=== PATIENT | male | born 1960 | race Caucasian/White ===

== ENCOUNTER 2017-09-15 11:08 | Outpatient (CLI) | payer MEDICARE ==
[~2017-09-15] VITALS: Ht 172.7 cm; Wt 78.2 kg
--- NOTE | ~2017-09-15 | HEMODYNAMI ---
PATIENT:LAILA DIA MEDICAL RECORD: [id number] : 56 LOCATION:[facility] ADMISSION DATE: 09/15/17 Generatedon:09/15/201714:58 Patient name: LAILA DIA Patient #: [id number] SSN: : Date of study: 09/15/2017 Page: Of Hemodynamic Procedure Report Patient Data Patient Demographics Procedure consent was obtained First Name: LAILA Gender: Male Last Name: IFEOMA : 1960 [facility] Initial: JAMISON Age: 57 year(s) Patient #: [id number] Race: Unknown Additional ID: [id number] Contact details Address: [address] [place] [address] State: [place] City: [place] Zip code: [address] Past Medical History Allergies: No known allergies Admission Admission Data Admission Date: 09/15/2017 Admission Time: 11:08 Procedure Procedure Types Cath Procedure Diagnostic Procedure LHC LHC w/Coronaries FFR/IVUS Intra-Coronary IVUS Initial Miscellaneous Procedures Moderate Sedation up to 45 minutes Procedure Description Procedure Date Procedure Date: 09/15/2017 Procedure Start Time: 14:20 Procedure End Time: 14:55 Procedure Staff Name Function Jose Rees RT Scrub Eloisa Hernandes RN Nurse Huseyin Cummings MD Performing Physician So Ibarra RN Nurse Jorge Alberto Galloway RT Monitor Procedure Data Cath Procedure Fluoroscopy Diagnostic fluoroscopy Total fluoroscopy Time: 7 time: 7 min min Diagnostic fluoroscopy Total fluoroscopy dose: 729 dose: 729 mGy mGy Contrast Material Contrast Material Type Amount (ml) Isovue 300 102 Entry Location Entry Primary Successful Side Size Upsize Upsize Entry Closure Mendoza ccessful Closure Location (Fr) 1 (Fr) 2 (Fr) Remarks Device Remarks Radial Right 6 Fr Mechanical artery Short Compression Estimated blood loss: 5 ml Diagnostic catheters Device Type Used For End Catheter Placement Terumo 5Fr Sam 110cm Procedure catheter Procedure Complications No complications Procedure Medications Medication Administration Route Dosage 0.9% NaCl I.V. 100 ml/hr Oxygen NC 2 l/min Lidocaine 2% added to field 20 Heparin Flush Bag added to field 2 bags (1000units/500ml NS) Benadryl I.V. 50 mg Radial Cocktail added to field 1 syringe (Verapomil 2mg/Nitro 400mcg/Heparin 1500units) Fentanyl I.V. 100 mcg Versed I.V. 2 mg Versed I.V. 2 mg Fentanyl I.V. 100 mcg Heparin Bolus I.V. 6000 units Versed I.V. 1 mg Fentanyl I.V. 50 mcg Fentanyl I.V. 50 mcg Versed I.V. 1 mg Hemodynamics Rest Heart Rate: 56 (bpm) Pressure Samples Time Site Value (mmHg) Purpose Heart Use Rate(bpm) 14:25 LV 122/4,15 Snapshot 63 14:25 LV 134/4,13 Pullback 66 14:25 AO 124/69(92) Pullback 66 Gradients Valve Time Site 1 Site 2 Mean SEP/DFP Peak To Heart Use (mmHg) (sec/min) Peak Rate (mmHg) (bpm) Aortic 14:25 LV AO 8 20 10 66 134/4,13 124/69(92) Calculations Valve P-P Mean Valve Index Valve Source Name Gradient Area Flow (cm2) Aortic 10 8 10 8 Snapshots Pre Cath Intra NCS Post Cath Vital Signs Time Heart Resp SPO2 etCO2 NIBP (mmHg) Rhythm Pain Sedation Rate (ipm) (%) (mmHg) Status Level (bpm) 14:03:44 52 15 98 0 147/82(113) NSR 0 (11) 10(A) , No pain 14:08:29 48 17 100 12 148/79(107) NSR 0 (11) 10(A) , No pain 14:13:14 52 17 99 12 146/76(123) NSR 0 (11) 10(A) , No pain 14:17:59 59 18 98 18 141/75(113) NSR 0 (11) 10(A) , No pain 14:22:41 69 17 96 0 111/71(87) NSR 0 (11) 9(A) , No pain 14:27:18 63 16 98 9.7 125/74(102) NSR 0 (11) 9(A) , No pain 14:31:58 62 16 97 0 128/72(96) NSR 0 (11) 9(A) , No pain 14:36:39 61 14 96 0 117/69(92) NSR 0 (11) 9(A) , No pain 14:41:18 62 14 97 6 124/69(87) NSR 0 (11) 9(A) , No pain 14:45:58 62 14 97 6 112/70(96) NSR 0 (11) 9(A) , No pain 14:50:37 61 16 98 6.7 109/62(80) NSR 0 (11) 10(A) , No pain 14:55:48 59 7 98 6 125/72(92) NSR 0 (11) 10(A) , No pain Medications Time Medication Route Dose Verified Delivered Reason Note s Effectiveness by by 13:55:03 0.9% NaCl I.V. 100 Huseyin So used for ml/hr Emiliano Ibarra RN procedure 13:55:15 Oxygen NC 2 l/min Huseyin So Per physician Emiliano Ibarra RN 13:55:30 Lidocaine 2% added 20ml Huseyin Huseyin for local to vial Emiliano Cummings MD anesthetic field 13:55:48 Heparin Flush added 2 bags Huseyin Huseyin used for Bag to Emiliano Cummings MD procedure (1000units/500ml field NS) 14:06:57 Benadryl I.V. 50 mg Huseyin Huseyin used for Emiliano Cummings MD procedure 14:12:25 Radial Cocktail added 1 Huseyin Huseyin for (Verapomil to syringe Emiliano Cummings MD vasodilation 2mg/Nitro field 400mcg/Hepari 14:19:18 Fentanyl I.V. 100 mcg Huseyin So for sedation Emiliano Ibarra RN 14:19:29 Versed I.V. 2 mg Huseyin So for sedation Emiliano Ibarra RN 14:25:04 Fentanyl I.V. 100 mcg Huseyin So for sedation Emiliano Ibarra RN 14:25:23 Versed I.V. 2 mg Huseyin So for sedation Emiliano Ibarra RN 14:37:26 Heparin Bolus I.V. 6000 Huseyin So for units Emiliano Ibarra RN anticoagulation 14:37:38 Versed I.V. 1 mg Huseyin So for sedation Emiliano Ibarra RN 14:37:49 Fentanyl I.V. 50 mcg Huseyin So for sedation Emiliano Ibarra RN 14:44:43 Fentanyl I.V. 50 mcg Huseyin Rizzo for sedation Emiliano Ibarra RN 14:44:53 Versed I.V. 1 mg Huseyin Rizzo for sedation Emiliano Ibarra RN Procedure Log Time Note 13:40:11 Eloisa Hernandes RN sent for patient. Start room use. 13:52:12 Time tracking: Regular hours 13:52:16 Plan of Care:Hemodynamics will remain stable., Cardiac rhythm will remain stable., Comfort level will be maintained., Respiratory function will remain adequate., Patient/ family verbilizes understanding of procedure., Procedure tolerated without complication., Recovers from procedure without complications.. 13:55:03 0.9% NaCl 100 ml/hr I.V. was administered by So Ibarra RN; used for procedure; 13:55:15 Oxygen 2 l/min NC was administered by So Ibarra RN; Per physician; 13:55:30 Lidocaine 2% 20ml vial added to field was administered by Huseyin Cummings MD; for local anesthetic; 13:55:47 Patient received from Pre/Post Procedure Room to [facility] 1 Alert and oriented. Tansferred to table in Supine position. 13:55:48 Warm blankets applied, and kevon hugger turned on for patient comfort. 13:55:48 Heparin Flush Bag (1000units/500ml NS) 2 bags added to field was administered by Huseyin Cummings MD; used for procedure; 13:55:50 Correct patient and procedure confirmed by team. 13:55:52 ECG and BP/O2 sat monitors applied to patient. 13:55:52 Signed procedure consent form obtained from patient. 14:02:51 Vital chart was started 14:06:57 Benadryl 50 mg I.V. was administered by Huseyin Cummings MD; used for procedure; 14:12:25 Radial Cocktail (Verapomil 2mg/Nitro 400mcg/Heparin 1500units) 1 syringe added to field was administered by Huseyin Cummings MD; for vasodilation; 14:14:21 Baseline sample Acquired. 14:14:27 Rhythm: sinus rhythm 14:14:28 Full Disclosure recording started 14:14:38 H&P Date Dictated: 08/03/2017 Within 30 days and on chart., H&P Addendum completed by physician on day of procedure. (MUST COMPLETE FOR ALL OUTPATIENTS). 14:14:42 Pre-procedure instructions explained to patient. 14:14:43 Pre-op teaching completed and patient verbalized understanding. 14:14:45 Family in waiting room. 14:14:47 Patient NPO since Midnight. 14:14:52 Patient allergic to No known allergies 14:14:54 Is the patient allergic to Iodine/contrast media? No. 14:14:55 Is patient on blood thinner?No 14:14:57 Patient diabetic? No. 14:14:59 Previous problem with sedation/anesthesia? No ? 14:15:20 Snore? Yes 14:15:22 Sleep apnea? No 14:15:23 Opens mouth fully? Yes 14:15:23 Deviated septum? No 14:15:24 Sticks out tongue? Yes 14:15:26 Airway obstruction? No ? 14:15:28 Dentures? No ? 14:16:11 Modified Abraham's test Ulnar < 7 seconds 14:16:19 Patient pain scale 0/10 ?. 14:16:24 IV patent on arrival in left forearm with 0.9% NaCl at [facility]. 14:17:15 Lab results completed and on chart. 14:17:21 Right Radial & Left Groin area was prepped with chlora-prep and draped in sterile fashion 14:17:22 Alarms reviewed by R. N. 14:17:23 Sharps counted by scrub and verified by R.N. 14:17:25 Use device set Radial Dx 14:17:26 MBrace Wrist Support (140-0250-00) opened to sterile field. 14:17:27 ACIST: Hand Control (59492) opened to sterile field. 14:17:28 St Chandler 260cm J .035 wire opened to sterile field. 14:17:29 Medline Cath Pack ([id number]) opened to sterile field. 14:17:29 ACIST: Syringe (27673) opened to sterile field. 14:17:30 Bag Decanter () opened to sterile field. 14:17:31 Terumo 6Fr Slender Glidesheath opened to sterile field. 14:17:32 Tegaderm 4 x 4 (1626W) opened to sterile field. 14:17:37 --------ALL STOP TIME OUT------ 14:17:37 Physician arrived 14:17:38 Final Timeout: patient, procedure, and site verified with staff and physician. All members of the team are in agreement. 14:17:40 Right Radial & Left Groin site verified by team. 14:17:43 Physical assessment completed. ASA score P 2 - A patient with mild systemic disease as per Huseyin Cummings MD. 14:17:45 Sedation plan: IV Moderate Sedation Medication:Versed, Fentanyl 14:19:18 Fentanyl 100 mcg I.V. was administered by So Ibarra RN; for sedation; 14:19:29 Versed 2 mg I.V. was administered by So Ibarra RN; for sedation; 14::37 Procedure started. 14::43 Local anesthetic to right radial artery with Lidocaine 2% by Huseyin Cummings MD.INITIAL ACCESS ONLY 14:21:35 A 6 Fr Short sheath was inserted into the Right Radial artery 14:23:02 A SR Labs 5Fr Sam 110cm catheter was advanced over the wire and used for Procedure. 14:23:11 Zero performed for pressure channel P1 14:23:14 Zero performed for pressure channel P1 14:25:04 Fentanyl 100 mcg I.V. was administered by So Ibarra RN; for sedation; 14:25:11 LV gram done using CLARKE 14:25:15 Injector settings: Ml/sec: 5, Volume: 15, 14:25:23 Versed 2 mg I.V. was administered by So Ibarra RN; for sedation; 14:25:33 EF : 55 % 14:25:34 LV hemodynamics recorded. 14:26:12 LCA angiography performed. 14:27:54 RCA angiography performed. 14:33:14 TUBING: High Pressure Extension Tubing (Emiliano) (LU1055I) opened to sterile field. 14:33:14 Cordis 6FR XBLAD 3.5 guide catheter opened to sterile field. 14:33:16 INFLATOR: IQ LogicixCompak Inflation Kit (PP7887) opened to sterile field. 14:33:[address] [place] IVUS Catheter opened to sterile field. 14:35:36 Aiken BMW [place] 2 J-tip 300cm 0.014 guide wir opened to sterile field. 14:35:42 Catheter removed. 14:35:48 6 Fr xblad 3.5 guide catheter was inserted over the wire 14:35:52 BMW wire advanced. 14:37:26 Heparin Bolus 6000 units I.V. was administered by So Ibarra RN; for anticoagulation; 14:37:38 Versed 1 mg I.V. was administered by So Ibarra RN; for sedation; 14:37:49 Fentanyl 50 mcg I.V. was administered by So Ibarra RN; for sedation; 14:38:12 Wire advanced across lesion. 14:38:51 IVUS catheter advanced over wire. 14:42:03 IVUS pass to LAD lesion performed. 14:42:05 IVUS catheter removed over wire. 14:42:10 Wire redirected to cx. 14:43:22 Wire advanced across lesion. 14:43:39 IVUS catheter advanced over wire. 14:44:43 Fentanyl 50 mcg I.V. was administered by So Ibarra RN; for sedation; 14:44:53 Versed 1 mg I.V. was administered by So Ibarra RN; for sedation; 14:47:56 IVUS pass to Circ lesion performed. 14:47:57 IVUS catheter removed over wire. 14:50:03 Wire removed. 14:50:05 Guide catheter removed. 14:50:12 Terumo TR Band Standard opened to sterile field. 14:50:20 Sheath removed intact; hemostasis achieved with Mechanical Compression to the Right Radial artery. 14:50:21 Procedure ended.(Physican Out) 14:51:34 Fluoroscopy time 07.00 minutes. 14:51:38 Fluoroscopy dose: 729 mGy 14:51:38 Flurop Dose total: 729 14:51:42 Contrast amount:Isovue 300 102ml. 14:51:45 Sharps counted by scrub and verified by R.N. 14:51:48 TR band inflated with 12cc of air. 14:51:49 Insertion/operative site no bleeding no hematoma. 14:51:54 Post Procedure Pulses reassessed and unchanged 14:51:57 Post-procedure physical assessment completed. ASA score P 2 - A patient with mild systemic disease as per Huseyin Cummings MD. 14:52:00 Post procedure rhythm: unchanged. 14:52:02 Estimated blood loss: 5 ml 14:52:03 Post procedure instruction explained to patient.Patient verbalizes understanding. 14:52:05 Patient needs reinforcement of post procedure teaching. 14:53:21 Procedure type changed to Cath procedure, Diagnostic procedure, LHC, LHC w/Coronaries, FFR/IVUS, Intra-Coronary IVUS Initial, Miscellaneous Procedures, Moderate Sedation up to 45 minutes 14:54:34 NEEDLE: Cook 21G 4cm Radial ([id number]) opened to sterile field. 14:54:56 Procedure and supply charges have been captured, reviewed, submitted and are correct. 14:54:59 Procedure Complication : No complications 14:55:01 Vital chart was stopped 14:55:02 See physician's report for complete and final results. 14:55:04 Report given to Pre/Post Procedure Room. 14:55:06 Patient transfered to Pre/Post Procedure Room with Stretcher. 14:55:08 Full Disclosure recording stopped 14:55:08 Procedure ended. 14:55:26 End room use (Document Last) Device Usage Item Name Manufacture Quantity Catalog Hospital Part Current Minim al Lot# / Number Charge Number Stock Stock Serial# Code MBrace Wrist Advanced 1 140-0250-00 239279 43574 [id number] 5 Support Vascular (140-0250-00) Dynamics ACIST: Hand Acist 1 65323 992203 290607 677378 5 Control Medical (34278) Systems Inc [facility] Chandler 260[address] [place] 1 546091 676975 492900 995682 30 J .035 wire ACIST: Acist 1 52270 522221 184386 582723 20 Syringe Medical (45787) Systems Inc Medline Cath Cardinal 1 [id number] 526884 31015 559065 5 Pack Health (PYFB25168) Bag Decanter Microtek 1 2001S 544317 81657 968093 5 (2001S) Medical Inc. Terumo 6Fr Terumo 1 [id number] 237426 919230 013813 40 Slender Glidesheath Tegaderm 4 x 3M 1 1626W 181958 536442 098547 5 4 (1626W) Terumo 5Fr Terumo 1 40-7018 185985 478916 145978 5 Sam 110cm catheter Cordis 6FR Cardinal 1 [id number] 322938 996497 593030 10 XBLAD 3.5 Health guide catheter TUBING: High Merit 1 [id number] 683805 05584 204486 10 Pressure Medical Extension Tubing (Cummings) (KM6986Y) INFLATOR: [facility] 1 GO3681 216215 841993 740461 15 [facility] BasixCompak Inflation Kit (MH9982) [facility] 1 44780Y 017578 033282 [address] [place] IVUS Catheter Aiken BMW Aiken 1 [id number] 202171 486462 602030 5 [place] 2 Vascular J-tip 300cm 0.014 guide wir Terumo TR Terumo 1 [id number] 655698 801039 792941 40 Band Standard NEEDLE: SocialFlow 1 W10375 550987 631037 778828 5 21G 4cm Radial (G93206) Signature Audit [place] Stage Time Signature Unsigned Intra-Procedure 09/15/2017 Jorge Alberto Galloway 2:58:42 PM RT(R) Signatures Monitor : Jorge Alberto Galloway RT Signature : Date : Time : [place] [id number] [place] [address]
[2017-09-15] MEDS ORDERED: BAYER CHEWABLE81 MG PO (11:32)
[2017-09-15] MEDS ORDERED: BETAPACE 80 MG80 MG PO (11:32)
[2017-09-15 11:42] VITALS: BP 119/83; Ht 172.7 cm; Wt 78.2 kg
[2017-09-15 11:48] LABS: BASOPHILS 0.5 % (0-2); EOSINOPHILS 4.1 % (0-7); HEMOGLOBIN 15.4 g/dL (13.5-17.5); IMMATURE GRANULOCYTES 0.3 % (0-5); LYMPHOCYTES 23.3 % (15-50); MCH 33.3 pg (26.0-34.0); MCHC 33.5 g/dL (31.0-37.0); MCV 99.4 fL (80.0-100.0); MEAN PLATELET VOLUME 9.5 fL (7.4-10.4); MONOCYTES 8.6 % (2-11); NEUTROPHILS 63.2 % (40-80); PLATELET COUNT 271 10x3/uL (130-400); RBC 4.63 10x6/uL (4.20-6.10); RDW 13.8 % (11.5-14.5); WBC 6.5 10x3/uL (4.8-10.8)
[2017-09-15 12:05] LABS: CALC OSMOLALITY 275 mosm/kg (275-300); CALCIUM 9.2 mg/dL (8.5-10.1); CARBON DIOXIDE 25.4 mmol/L (21.0-32.0); CHLORIDE - SERUM 105 mmol/L (98-107); CREATININE - SERUM 0.8 mg/dL (0.6-1.3); GLUCOSE 99 mg/dL (74-106); POTASSIUM - SERUM 4.1 mmol/L (3.5-5.1); SODIUM 139 mmol/L (136-145); UREA NITROGEN 8 mg/dL (7-18); eGFR NON AFRICAN AMERICAN > 90 mL/min (90-120)
== END 2017-09-15 17:55 | disposition home or self-care (01) ==
LOC: D.CATH 11:08
PROVIDERS: Internal Medicine Cardiovascular Disease
DX: I25.119 Atherosclerotic heart disease of native coronary artery with unspecified angina pectoris (principal); T82.855A Stenosis of coronary artery stent, initial encounter; R94.39 Abnormal result of other cardiovascular function study; Z01.812 Encounter for preprocedural laboratory examination

== ENCOUNTER → 2017-10-20 11:20 | Outpatient (CLI) | payer MEDICARE ==
[2017-09-15 11:42] VITALS: BMI 26.2
[~2017-10-20 11:20] MED LIST: BAYER CHEWABLE81 MG PO; BETAPACE 80 MG80 MG PO; HEMOCYTE PLUS C1 CAP PO; K-DUR20 MEQ PO; LASIX40 MG PO; PERCOCET 10/3251 TA1 PO; TUMERIC PO
[2017-10-21 12:15] LABS: HEPATITIS C ANTIBODY <0.1 (0.0-0.9)
== END | disposition home or self-care (01) ==
LOC: D.US 11:00
PROVIDERS: Internal Medicine Cardiovascular Disease
DX: Z01.812 Encounter for preprocedural laboratory examination (principal); I65.23 Occlusion and stenosis of bilateral carotid arteries; I48.91 Unspecified atrial fibrillation

== ENCOUNTER 2017-11-16 07:30 | Inpatient (IN) | payer MEDICARE ==
[~2017-11-16] VITALS: Ht 172.7 cm; Wt 83.2 kg
--- NOTE | ~2017-11-16 | OP ---
PATIENT NAME: LAILA DIA MEDICAL RECORD: [id number] :56 LOCATION:[facility] ADMISSION DATE:11/18/17 SURGEON: XANDER SWANSON MD DATE OF OPERATION: 11/18/2017 SURGEON: Xander Swanson MD ANESTHESIA: General endotracheal, Dr. Pelayo. OPERATION PERFORMED: Coronary artery bypass utilizing left internal thoracic, left anterior descending, reverse saphenous vein segment to the obtuse marginal 1 coronary artery and reverse saphenous vein graft to the posterior descending coronary artery. PREOPERATIVE DIAGNOSES: Atherosclerosis, coronary arteries with angina pectoris. POSTOPERATIVE DIAGNOSES: Atherosclerosis, coronary arteries with angina pectoris. INDICATION FOR OPERATION: Angina pectoris. FINDINGS AT OPERATION: The left anterior descending, obtuse marginal and posterior descending were good target vessels and 2.5 mm in diameter. The left internal thoracic and greater saphenous vein graft were of excellent quality. ESTIMATED BLOOD LOSS: Cell Saver was used. DESCRIPTION OF PROCEDURE: After informed consent and adequate preoperative medication and evaluation, the patient was brought to the operating room, placed on the table in the supine position. After induction of general anesthesia and application of appropriate monitoring devices, the chest, neck, abdomen, and both legs were prepped and draped in a sterile field, utilizing Betadine scrub, alcohol, and Betadine solution. A Betadine-impregnated drape was also used. Saphenous vein was harvested from right thigh and prepared for reverse saphenous vein graft. The leg was closed over drains utilizing 3-0 Vicryl and skin pankaj. A median sternotomy incision was used and dissection carried down the fascia. Hemostasis maintained with electrocautery. Sternum was divided and the innominate vein prepared for grafting. The patient was given a calculated dose of heparin, cannulated in the standard fashion utilizing 1 aortic, one two-stage cannula in the atrium and inferior vena cava. The patient was placed on cardiopulmonary bypass, cooled to 27 degrees centigrade. A cross clamp was placed just proximal to the aortic cannula and the patient was given cardioplegic solution through the aortic root. The patient was given a cold induction and cold maintenance. The patient was given cold intermittent cardioplegic solution throughout the procedure through the grafts, through the root or a combination of both. The first vessel to be grafted was the obtuse marginal. It was grafted end-to-side utilizing a running 7-0 Prolene suture. Grafts were measured back to the aorta and a proximal anastomosis fashioned utilizing running 6-0 Prolene suture. Next, the posterior descending was exposed and an end-to-side anastomosis fashioned to the vein graft utilizing a running 7-0 Prolene suture. The grafts were measured back to the aorta and a proximal anastomosis fashioned utilizing running 6-0 Prolene suture. Next, the left internal thoracic was brought through the hole in pericardium, sutured left anterior descending end-to-side utilizing a running 8-0 Prolene suture. Pedicle OPERATIVE REPORT [id number] IFEOMA,LAILA SWIFT was attached to epicardium with 6-0 Prolene suture. All maneuvers to remove trapped air were performed. The patient was given warm cardioplegic reperfusion and controlled reperfusion. The patient was rewarmed to 37 degrees centigrade. Two atrial and 2 ventricular pacing wires were placed in the heart brought out through the epigastric area. The patient was weaned cardiopulmonary bypass. After being stable off bypass, he was given calculated dose of protamine to reverse the heparin. Hemostasis was achieved. A #40 right angle and #36 chest tubes were brought in through the epigastric area and placed in mediastinum. A separate left pleural tube was connected to underwater seal and suction. Chest was again irrigated. Instrument count and sponge count were correct times 2. Chest was closed in layers utilizing #7 wire on the sternum, #2 Vicryl on the linea alba and pectoralis fascia. Subcutaneous tissue was approximated with 3-0 Vicryl and skin approximated with 3-0 subcuticular Vicryl. Sterile dressings were applied. The patient tolerated the procedure well and transferred to cardiovascular ICU in satisfactory condition. TRANSINT:[id number] Voice Confirmation ID: [id number] DOCUMENT ID: [id number] XANDER SWANSON MD at 1401 CC: [id number] DICTATION DATE: 11/18/17 1450 BANK GUARD: 11/18/17 1608 ADM IN [place] [id number] [place] [id number]
--- NOTE | ~2017-11-16 | TEE ---
PATIENT:LAILA DIA MEDICAL RECORD: [id number] LOCATION:[place] [address] AGE OF PATIENT: 57 ADMISSION DATE: 11/18/17 SEX: M REFERRING PHYSICIAN: INTERPRETING PHYSICIAN: WILLIE FORRESTER MD TRANSESOPHAGEAL ECHOCARDIOGRAM DANETTE CHARGE Y INDICATIONS: CABG PREMEDICATIONS: PATIENT'S RESPONSE PROCEDURE DOPPLER MEASUREMENTS: LVIT LA PA RA LVOT RVOT Asc. Ao AV Gradient Peak AV Mean AV Area MV Gradient Peak MV Mean MV Area INTERPRETATION: Doppler: 2-D: BRADYCARDIA, EF 50% COLOR FLOW DOPPLER TRACES OF MR, TR, AI NORMAL SALINE STUDY: MISCELLANOUS: DIAGNOSIS: PLAN: Project Eng:2 Dr. Cummings Dry Wall Applicator: Gab ROCHE COMMENTS: KIKI PATIENT DATE OF SERVICE: 11/18/2017 DATE OF SERVICE: 11/18/2017 Transesophageal echo evaluation of valvular structures during bypass surgery. FINDINGS: 1. Left ventricle chamber size is within normal limits. Left ventricular systolic function is normal. Overall ejection fraction estimated at 50%. TRANSESOPHAGEAL ECHOCARDIOGRAM REPORT [id number] LAILA DIA CHA 2. Left atrium, right atrium, and right ventricle chamber sizes are within normal limits. 3. Valvular structures have normal structure and motion. 4. Doppler interrogation only reveals trace mitral regurgitation, trace tricuspid regurgitation, trace aortic insufficiency. No other valvular insufficiency or stenosis. 5. No evidence of pericardial effusion or left ventricular thrombus. TRANSINT:[id number] Voice Confirmation ID: [id number] DOCUMENT ID: [id number] at 1800 CC: [id number] DICTATION DATE: 11/18/17 1213 LEAD ATG DEVELOPER: 11/18/17 1532 DIS IN 11/25/17 [place] [id number] [place] [id number]
--- NOTE | ~2017-11-16 | HP ---
PATIENT: LAILA DIA MEDICAL RECORD: [id number] ACCOUNT: [id number] LOCATION:[facility] : 56 ADMISSION DATE: 11/16/17 HISTORY AND PHYSICAL EXAMINATION LAILA Miles (57yo, M) ID# [id number]. Date/Time11/04/2017 09:06ERMJR01 [address] ClinicProviderPAULA SWANSON MDInsuranceMed Primary: [place] (MEDICARE) Insurance # : [id number] Employer Name : UNKNOWN Prescription: [employer] - This member could not be found in the payer's files. Please verify coverage and all member demographic information. Chief Complaint Followup: Coronary arteriosclerosis re-eval CABG, check if clear of flu symptoms Vitals BP:126/74 sitting L arm 11/04/2017 09:36 am 126/70 sitting R arm 11/04/2017 09:39 amBP Cuff Size:adult 11/04/2017 09:36 am adult 11/04/2017 09:38 amHR:52,reg 11/04/2017 09:39 amHt:5 ft 8 in 11/04/2017 09:34 amWt:173 lbs 11/04/2017 09:39 amNotes:feeling better. Occasionally has productive cough, couple times daily. Produces yellowish mucus, not in large amounts. decreasing. 11/04/2017 09:40 amBMI:26.3 11/04/2017 09:39 amAllergies Reviewed Allergies NKDAMedications Reviewed Medications Aspir-Esther 325 mg tablet,delayed release Take 1 tablet(s) every day by oral route.09/28/17 enteredKathy Wilsonsotalol 80 mg tablet Take 0.5 tablet(s) twice a day by oral route.09/28/17 enteredKathy WilsonProblems Reviewed Problems Coronary arteriosclerosis - Onset: 09/28/2017 Family History Reviewed Family History Mother- Heart diseaseSocial History Reviewed Social History Cardiology Family history of heart disease?: Y Smoking Status: Current every day smoker Smoker (1/2 PPD) High Cholesterol: N High blood pressure: N Overweight: Y Obese: N Diabetes: N Surgical History Reviewed Surgical History Angioplasty Appendectomy Tonsillectomy Past Medical History Reviewed Past Medical History Angioplasty (balloon): Y HISTORY AND PHYSICAL [id number] IFEOMALAILA Arrhythmia: Y Atrial fibrillation: Y Coronary Artery Disease: Y Heart stents: Y Documents for Discussion N/A Screening None recorded. HPI Coronary Artery Disease F/U Reported by patient. Severity: symptoms are improving; no chest discomfort with daily activities; has not needed to use Nitroglycerin Context: non-smoker Associated Symptoms: no chest pain; no neck pain; no left arm pain; no dyspnea with exertion; no sweating; no nausea; no stress coronary artery disease ROS Patient reports no fever, no night sweats, no significant weight gain, no significant weight loss, and no exercise intolerance; recent bout with the flu. He reports palpitations but reports no chest pain, no arm pain on exertion, no shortness of breath when walking, no shortness of breath when lying down, and no known heart murmur. He reports frequent diarrhea but reports no abdominal pain, no vomiting, normal appetite, not vomiting blood, no nausea, and no constipation. He reports no d ry eyes, no irritation, and no vision change. He reports no difficulty hearing and no ear pain. He reports no frequent nosebleeds and no nose/sinus problems. He reports no sore throat, no bleeding gums, no snoring, no dry mouth, no mouth ulcers, no oral a b normalities, and no teeth problems. He reports no jugular vein distension and no swollen glands. He reports no cough, no wheezing, no shortness of breath, and no coughing up blood. He reports no incontinence, no difficulty urinating, no hematuria, and no i ncreased frequency. He reports no muscle aches, no muscle weakness, no arthralgias/joint pain, no back pain, and no swelling in the extremities. He reports no abnormal mole, no jaundice, and no rashes. He reports no loss of consciousness, no weakness, no n umbness, no seizures, no dizziness, and no headaches. He reports no depression, no sleep disturbances, feeling safe in relationship, and no alcohol abuse. He reports no fatigue. He reports no swollen glands and no bruising. He reports no runny nose, no si nus pressure, no itching, no hives, and no frequent sneezing. ROS as noted in the HPI Physical Exam Patient is a 57-year-old male. Constitutional: General Appearance well nourished and developed and healthy-appearing. Level of Distress NAD. Ambulation ambulating normally. Cardiovascular: Apical Impulse not displaced or no thrill. Heart Auscultation normal s1 and s2; no murmurs, rubs, or gallops; and irregularly irregular. Arterial Pulses no abdominal aorta bruits, femoral bruits, or popliteal bruits and 2 + bilateral, carotid 2+ bilateral, femoral 2+ bilateral, popliteal 2+ bilateral, and dorsalis pedis 2+ bilateral. Edema no edema or varicosities. Lungs: Repiratory Effort no dyspnea. Percussion no hyperresonance or dullness or flatness. Auscultation no wh eezing, rhonchi, or rales / crackles and breathing sounds normal, good air movement, and CTA except as noted. HISTORY AND PHYSICAL [id number] LAILA DIA Abdomen: Bowl Sounds normal. Inspection and Palpation no tenderness, guarding, masses, or rebound tenderness and soft and non-distended. Liver non-tender and no hepatomegaly. Spleen non-tender and no splenomegaly. Hernia none palpable. Musculoskeletal System: Gait And Stance normal gait and stance. Digits and Nails normal nails and no cyanosis. Neurologic: Cranial Nerves grossly intact. Reflexes DTRs 2+ bilaterally throughout. Sensation grossly intact. Lymph Nodes: Lymph Nodes no cervical LAD, supraclavicular LAD, axillary LAD, or inguinal LAD. Eyes: Lids and Conjunctivae no discharge or pallor and non-injected. Pupils PERRLA. Cornea grossly intact. EOM EOMI. Lens clear. Sclerae non-icteric. Neck: Neck no masses, enlarged lymph nodes, or carotid bruits and supple and trachea midline. Thyroid no enlargement or nodules and non-tender. Skin: Inspection and Palpation no rash, lesions, ulcers, jaundice, or abnormal nevi. Assessment / Plan coronary artery disease 1. Coronary arteriosclerosis I25.10: Atherosclerotic heart disease of [place] coronary artery without angina pectoris Discussion Notes the patient has recovered from f luid and is ready to proceed with coronary bypass. I have discussed his disease process with him in detail as well as the alternative methods of treatment we discussed coronary artery bypass and the expected benefits and risks which include bleeding, infe ction, stroke, , M.D. imponderables. He understands all of the above and wishes to proceed with planned surgery AZALIA SWANSON MD at 1117 CC: [id number] DICTATION DATE: 11/04/1730 [employer]: SAUL 11/05/17 [id number] [place] [address]
[~2017-11-16 07:30] MED LIST changes: -HEMOCYTE PLUS C1 CAP PO; -K-DUR20 MEQ PO; -LASIX40 MG PO; -PERCOCET 10/3251 TA1 PO; -TUMERIC PO
[2017-11-17] MEDS ORDERED: TUMERIC PO (11:38)
[2017-11-17 13:26] LABS: APPEARANCE CLEAR (CLEAR); COLOR YELLOW (YELLOW)
[2017-11-17 13:27] LABS: BACTERIA FEW /hpf (NONE SEEN); BILIRUBIN NEGATIVE (NEGATIVE); EPITHELIAL CELLS 0-5 /hpf (0-5); GLUCOSE NEGATIVE (NEGATIVE); GRANULAR CAST RARE /lpf (NONE SEEN); HYALINE CAST 0-5 /lpf (NONE SEEN); KETONE NEGATIVE (NEGATIVE); NITRITE NEGATIVE (NEGATIVE); PROTEIN NEGATIVE (NEGATIVE); UROBILINOGEN NORMAL (NORMAL); WHITE CELLS - URINE OCC /hpf (0-5)
[2017-11-17 13:28] LABS: MUCUS <1+ /lpf (NONE SEEN)
[2017-11-17 13:50] LABS: BASOPHILS 0.3 % (0-2); EOSINOPHILS 4.7 % (0-7); HEMATOCRIT 47.1 % (42.0-54.0); HEMOGLOBIN 16.3 g/dL (13.5-17.5); IMMATURE GRANULOCYTES 0.5 % (0-5); LYMPHOCYTES 31.1 % (15-50); MCH 33.7 pg (26.0-34.0); MCHC 34.6 g/dL (31.0-37.0); MCV 97.5 fL (80.0-100.0); MEAN PLATELET VOLUME 9.3 fL (7.4-10.4); MONOCYTES 11.6 % (2-11); NEUTROPHILS 51.8 % (40-80); PLATELET COUNT 245 10x3/uL (130-400); RBC 4.83 10x6/uL (4.20-6.10); RDW 15.2 % (11.5-14.5); WBC 6.6 10x3/uL (4.8-10.8)
[2017-11-17 13:53] LABS: INR 1.08 (0.85-1.17); PROTIME 13.6 SECONDS (11.6-15.0)
[2017-11-17 14:29] LABS: ALBUMIN 4.2 g/dL (3.4-5.0); ALKALINE PHOSPHATASE 111 U/L (46-116); ALT (SGPT) 29 U/L (10-68); BILIRUBIN - TOTAL 0.43 mg/dL (0.2-1.3); CALC OSMOLALITY 278 mosm/kg (275-300); CALCIUM 9.3 mg/dL (8.5-10.1); CARBON DIOXIDE 20.8 mmol/L (21.0-32.0); CHLORIDE - SERUM 105 mmol/L (98-107); CHOLESTEROL, TOTAL 246 mg/dL (0-200); CREATININE - SERUM 0.9 mg/dL (0.6-1.3); GLUCOSE 101 mg/dL (74-106); PHOSPHOROUS 3.6 mg/dL (2.5-4.9); POTASSIUM - SERUM 4.3 mmol/L (3.5-5.1); PROTEIN - SERUM 7.5 g/dL (6.4-8.2); SODIUM 139 mmol/L (136-145); T4 THYROXIN - FREE 0.96 ng/dL (0.76-1.46); THYROID STIMULATING HORMONE 1.25 uIU/mL (0.36-3.74); UREA NITROGEN 14 mg/dL (7-18); URIC ACID 9.1 mg/dL (2.6-7.2); eGFR NON AFRICAN AMERICAN > 90 mL/min (90-120)
[2017-11-17 14:37] LABS: COLD SCREEN @ 4 DEGREES 2+ (NEGATIVE); COLD SCREEN ROOM TEMP NEGATIVE (NEGATIVE)
[2017-11-17 14:44] LABS: HEMOGLOBIN A1C 5.1 % (4.8-6.0)
[2017-11-18] VITALS (35 sets, daily range): BP systolic 102–142; BP diastolic 47–76; BMI 24.9; BMI 26.7
[2017-11-18 07:53] LABS: PLT FUNCT.(P2Y12) PLAVIX 198 PRU (194-418)
[2017-11-18 14:06] LABS: MCH 33.1 pg (26.0-34.0); MCHC 34.1 g/dL (31.0-37.0); MEAN PLATELET VOLUME 9.2 fL (7.4-10.4); RDW 14.9 % (11.5-14.5)
[2017-11-18 14:08] LABS: HEMATOCRIT 35.5 % (42.0-54.0); HEMOGLOBIN 12.1 g/dL (13.5-17.5); RBC 3.66 10x6/uL (4.20-6.10); WBC 12.4 10x3/uL (4.8-10.8)
[2017-11-18 14:19] LABS: APTT 35.4 SECONDS (22.8-39.4); CALC OSMOLALITY 297 mosm/kg (275-300); CALCIUM 7.1 mg/dL (8.5-10.1); CARBON DIOXIDE 23.9 mmol/L (21.0-32.0); CHLORIDE - SERUM 111 mmol/L (98-107); CREATININE - SERUM 0.8 mg/dL (0.6-1.3); INR 1.62 (0.85-1.17); POTASSIUM - SERUM 4.5 mmol/L (3.5-5.1); PROTIME 18.7 SECONDS (11.6-15.0); SODIUM 147 mmol/L (136-145); UREA NITROGEN 14 mg/dL (7-18); eGFR NON AFRICAN AMERICAN > 90 mL/min (90-120)
[2017-11-18 14:20] LABS: GLUCOSE 182 mg/dL (74-106)
[2017-11-18 17:12] LABS: APPEARANCE HAZY (CLEAR); BILIRUBIN NEGATIVE (NEGATIVE); COLOR YELLOW (YELLOW); GLUCOSE NEGATIVE (NEGATIVE); KETONE NEGATIVE (NEGATIVE); NITRITE NEGATIVE (NEGATIVE); PROTEIN TRACE mg/dL (NEGATIVE); UROBILINOGEN NORMAL (NORMAL)
[2017-11-18 17:13] LABS: BACTERIA FEW /hpf (NONE SEEN); EPITHELIAL CELLS 0-5 /hpf (0-5); WHITE CELLS - URINE 0-5 /hpf (0-5)
[2017-11-18 17:14] LABS: AMORPHOUS SEDIMENT <1+ /lpf (NONE SEEN)
[2017-11-19] VITALS (88 sets, daily range): BP systolic 90–138; BP diastolic 44–76; BMI 27.9
[2017-11-19 03:13] LABS: HEMATOCRIT 26.9 % (42.0-54.0)
[2017-11-19 06:15] LABS: HEMATOCRIT 29.2 % (42.0-54.0); HEMOGLOBIN 9.7 g/dL (13.5-17.5); MCH 32.9 pg (26.0-34.0); MCHC 33.2 g/dL (31.0-37.0); MEAN PLATELET VOLUME 8.8 fL (7.4-10.4); RBC 2.95 10x6/uL (4.20-6.10); RDW 15.5 % (11.5-14.5); WBC 10.8 10x3/uL (4.8-10.8)
[2017-11-19 06:33] LABS: ALBUMIN 3.7 g/dL (3.4-5.0); ALKALINE PHOSPHATASE 37 U/L (46-116); ALT (SGPT) 21 U/L (10-68); BILIRUBIN - TOTAL 0.57 mg/dL (0.2-1.3); CALC OSMOLALITY 282 mosm/kg (275-300); CALCIUM 8.4 mg/dL (8.5-10.1); CARBON DIOXIDE 29.5 mmol/L (21.0-32.0); CHLORIDE - SERUM 106 mmol/L (98-107); CREATININE - SERUM 0.9 mg/dL (0.6-1.3); GLUCOSE 135 mg/dL (74-106); POTASSIUM - SERUM 4.5 mmol/L (3.5-5.1); PROTEIN - SERUM 5.5 g/dL (6.4-8.2); SODIUM 141 mmol/L (136-145); UREA NITROGEN 13 mg/dL (7-18); eGFR NON AFRICAN AMERICAN > 90 mL/min (90-120)
[2017-11-20] VITALS (43 sets, daily range): BP systolic 85–121; BP diastolic 43–86; Ht 172.7 cm; Wt 83.2 kg
[2017-11-20 06:23] LABS: ALBUMIN 4.6 g/dL (3.4-5.0); ANION GAP 15.1 mmol/L (8-16); BILIRUBIN - TOTAL 0.88 mg/dL (0.2-1.3); CARBON DIOXIDE 25.9 mmol/L (21.0-32.0); PROTEIN - SERUM 6.2 g/dL (6.4-8.2)
[2017-11-20 06:24] LABS: CREATININE - SERUM 2.2 mg/dL (0.6-1.3)
[2017-11-20 06:29] LABS: HEMATOCRIT 23.6 % (42.0-54.0); HEMOGLOBIN 8.1 g/dL (13.5-17.5); MCH 33.6 pg (26.0-34.0); MCHC 34.3 g/dL (31.0-37.0); MCV 97.9 fL (80.0-100.0); MEAN PLATELET VOLUME 8.8 fL (7.4-10.4); RBC 2.41 10x6/uL (4.20-6.10); RDW 15.1 % (11.5-14.5); WBC 8.5 10x3/uL (4.8-10.8)
[2017-11-20 06:32] LABS: PLATELET COUNT 82 10x3/uL (130-400)
[2017-11-20 08:02] LABS: PLATELET ESTIMATE DECREASED
[2017-11-20 17:35] LABS: ANION GAP 11.9 mmol/L (8-16); CALCIUM 8.5 mg/dL (8.5-10.1); CARBON DIOXIDE 28.5 mmol/L (21.0-32.0); CREATININE - SERUM 1.8 mg/dL (0.6-1.3); POTASSIUM - SERUM 4.4 mmol/L (3.5-5.1)
[2017-11-20 21:03] LABS: CREATININE - URINE 101.8 mg/dL (30-125); PRO/CRE RATIO URINE 0.5 mg/g; PROTEIN - URINE 53.4 mg/dL (0.0-11.9)
[2017-11-20 21:08] LABS: APPEARANCE CLEAR (CLEAR); BILIRUBIN NEGATIVE (NEGATIVE); COLOR YELLOW (YELLOW); GLUCOSE NEGATIVE (NEGATIVE); KETONE NEGATIVE (NEGATIVE); NITRITE NEGATIVE (NEGATIVE); PROTEIN TRACE mg/dL (NEGATIVE); UROBILINOGEN NORMAL (NORMAL)
[2017-11-20 21:10] LABS: BACTERIA FEW /hpf (NONE SEEN); WHITE CELLS - URINE 0-5 /hpf (0-5)
[2017-11-21] VITALS (24 sets, daily range): BP systolic 90–129; BP diastolic 51–79
[2017-11-21 06:09] LABS: HEMATOCRIT 23.2 % (42.0-54.0); HEMOGLOBIN 7.8 g/dL (13.5-17.5); MCH 32.6 pg (26.0-34.0); MCHC 33.6 g/dL (31.0-37.0); MCV 97.1 fL (80.0-100.0); MEAN PLATELET VOLUME 9.5 fL (7.4-10.4); RBC 2.39 10x6/uL (4.20-6.10); RDW 15.2 % (11.5-14.5); WBC 7.8 10x3/uL (4.8-10.8)
[2017-11-21 06:35] LABS: ALBUMIN 3.7 g/dL (3.4-5.0); ANION GAP 12.4 mmol/L (8-16); BILIRUBIN - TOTAL 0.76 mg/dL (0.2-1.3); CALCIUM 8.5 mg/dL (8.5-10.1); CARBON DIOXIDE 27.6 mmol/L (21.0-32.0); PROTEIN - SERUM 5.9 g/dL (6.4-8.2)
[2017-11-21 06:40] LABS: CREATININE - SERUM 1.2 mg/dL (0.6-1.3)
[2017-11-21 16:06] LABS: HEMATOCRIT 23.3 % (42.0-54.0); HEMOGLOBIN 7.9 g/dL (13.5-17.5); MCH 32.8 pg (26.0-34.0); MCHC 33.9 g/dL (31.0-37.0); MCV 96.7 fL (80.0-100.0); MEAN PLATELET VOLUME 9.4 fL (7.4-10.4); RBC 2.41 10x6/uL (4.20-6.10); RDW 14.9 % (11.5-14.5); WBC 8.1 10x3/uL (4.8-10.8)
[2017-11-22] VITALS (24 sets, daily range): BP systolic 104–137; BP diastolic 56–657
[2017-11-22 06:26] LABS: ALBUMIN 3.4 g/dL (3.4-5.0); ALKALINE PHOSPHATASE 71 U/L (46-116); ALT (SGPT) 210 U/L (10-68); BILIRUBIN - TOTAL 0.62 mg/dL (0.2-1.3); CALCIUM 8.5 mg/dL (8.5-10.1); CARBON DIOXIDE 30.1 mmol/L (21.0-32.0); CHLORIDE - SERUM 102 mmol/L (98-107); CREATININE - SERUM 0.9 mg/dL (0.6-1.3); GLUCOSE 111 mg/dL (74-106); POTASSIUM - SERUM 3.6 mmol/L (3.5-5.1); SODIUM 140 mmol/L (136-145); eGFR NON AFRICAN AMERICAN > 90 mL/min (90-120)
[2017-11-22 06:28] LABS: CALC OSMOLALITY 282 mosm/kg (275-300); UREA NITROGEN 20 mg/dL (7-18)
[2017-11-22 06:35] LABS: HEMATOCRIT 22.9 % (42.0-54.0); MCH 32.2 pg (26.0-34.0); MCHC 32.8 g/dL (31.0-37.0); MCV 98.3 fL (80.0-100.0); MEAN PLATELET VOLUME 9.8 fL (7.4-10.4); RBC 2.33 10x6/uL (4.20-6.10); RDW 15.2 % (11.5-14.5); WBC 6.3 10x3/uL (4.8-10.8)
[2017-11-22 06:36] LABS: HEMOGLOBIN 7.5 g/dL (13.5-17.5)
[2017-11-23] VITALS (24 sets, daily range): BP systolic 116–147; BP diastolic 54–100
[2017-11-23 06:25] LABS: MCH 31.7 pg (26.0-34.0); MCHC 33.1 g/dL (31.0-37.0); MEAN PLATELET VOLUME 9.9 fL (7.4-10.4)
[2017-11-23 06:34] LABS: HEMATOCRIT 29.3 % (42.0-54.0); HEMOGLOBIN 9.7 g/dL (13.5-17.5); MCV 95.8 fL (80.0-100.0); RBC 3.06 10x6/uL (4.20-6.10)
[2017-11-23 06:44] LABS: ALBUMIN 3.3 g/dL (3.4-5.0); ALKALINE PHOSPHATASE 100 U/L (46-116); ALT (SGPT) 177 U/L (10-68); CALC OSMOLALITY 283 mosm/kg (275-300); CALCIUM 8.2 mg/dL (8.5-10.1); CARBON DIOXIDE 29.6 mmol/L (21.0-32.0); CHLORIDE - SERUM 104 mmol/L (98-107); GLUCOSE 100 mg/dL (74-106); POTASSIUM - SERUM 3.6 mmol/L (3.5-5.1); PROTEIN - SERUM 6.1 g/dL (6.4-8.2); SODIUM 142 mmol/L (136-145); UREA NITROGEN 15 mg/dL (7-18); eGFR NON AFRICAN AMERICAN 81 mL/min (90-120)
[2017-11-24] VITALS (22 sets, daily range): BP systolic 115–151; BP diastolic 62–82
[2017-11-24 06:09] LABS: HEMATOCRIT 31.7 % (42.0-54.0); HEMOGLOBIN 10.4 g/dL (13.5-17.5); MCH 31.6 pg (26.0-34.0); MCHC 32.8 g/dL (31.0-37.0); MCV 96.4 fL (80.0-100.0); MEAN PLATELET VOLUME 9.5 fL (7.4-10.4); RBC 3.29 10x6/uL (4.20-6.10); RDW 15.5 % (11.5-14.5); WBC 7.7 10x3/uL (4.8-10.8)
[2017-11-24 06:18] LABS: CALC OSMOLALITY 282 mosm/kg (275-300); CALCIUM 8.5 mg/dL (8.5-10.1); CARBON DIOXIDE 30.2 mmol/L (21.0-32.0); CHLORIDE - SERUM 104 mmol/L (98-107); CREATININE - SERUM 0.8 mg/dL (0.6-1.3); GLUCOSE 100 mg/dL (74-106); POTASSIUM - SERUM 3.7 mmol/L (3.5-5.1); SODIUM 142 mmol/L (136-145); UREA NITROGEN 13 mg/dL (7-18); eGFR NON AFRICAN AMERICAN > 90 mL/min (90-120)
[2017-11-25] VITALS (11 sets, daily range): BP systolic 108–149; BP diastolic 62–99
[2017-11-25] MEDS ORDERED: HEMOCYTE PLUS C1 CAP PO (08:55)
[2017-11-25] MEDS ORDERED: LASIX40 MG PO (08:57)
[2017-11-25] MEDS ORDERED: K-DUR20 MEQ PO (08:57)
[2017-11-25] MEDS ORDERED: PERCOCET 10/3251 TA1 PO (09:02)
== END 2017-11-25 15:22 | disposition home or self-care (01) | DRG 236 ==
LOC: D.SDCHOLD 07:30 → D.CVICU 11-18 05:00 → D.SDCHOLD 11-18 05:00 → D.CVICU 11-18 08:24
PROVIDERS: Internal Medicine Cardiovascular Disease; Internal Medicine Nephrology
PROC: 021109W Bypass Coronary Artery, Two Arteries from Aorta with Autologous Venous Tissue, Open Approach (ICD-10-PCS; 2017-11-18)
PROC: 06BP0ZZ Excision of Right Saphenous Vein, Open Approach (ICD-10-PCS; 2017-11-18)
PROC: 5A1221Z Performance of Cardiac Output, Continuous (ICD-10-PCS; 2017-11-18)
PROC: B245ZZ4 Ultrasonography of Left Heart, Transesophageal (ICD-10-PCS; 2017-11-18)
PROC: 02100AC Bypass Coronary Artery, One Artery from Thoracic Artery with Autologous Arterial Tissue, Open Approach (ICD-10-PCS; principal; 2017-11-18 07:30)
DX: I25.119 Atherosclerotic heart disease of native coronary artery with unspecified angina pectoris (principal); N17.9 Acute kidney failure, unspecified; D62 Acute posthemorrhagic anemia; I48.0 Paroxysmal atrial fibrillation; D64.9 Anemia, unspecified

== ENCOUNTER → 2017-12-09 11:41 | Outpatient (CLI) | payer MEDICARE ==
[2017-11-20 18:21] VITALS: BMI 27.9
[~2017-12-09 11:41] MED LIST changes: +HEMOCYTE PLUS C1 CAP PO; +K-DUR20 MEQ PO; +LASIX40 MG PO; +PERCOCET 10/3251 TA1 PO; +TUMERIC PO
[2017-12-09 12:16] LABS: ALBUMIN 3.8 g/dL (3.4-5.0); ANION GAP 15.1 mmol/L (8-16); BILIRUBIN - TOTAL 0.4 mg/dL (0.2-1.3); CALCIUM 9.3 mg/dL (8.5-10.1); CARBON DIOXIDE 25.1 mmol/L (21.0-32.0); CREATININE - SERUM 1.2 mg/dL (0.6-1.3); POTASSIUM - SERUM 4.2 mmol/L (3.5-5.1)
[2017-12-09 12:47] LABS: HEMATOCRIT 40.4 % (42.0-54.0); HEMOGLOBIN 13.6 g/dL (13.5-17.5); MCH 31.7 pg (26.0-34.0); MCHC 33.7 g/dL (31.0-37.0); MCV 94.2 fL (80.0-100.0); MEAN PLATELET VOLUME 9.4 fL (7.4-10.4); RBC 4.29 10x6/uL (4.20-6.10); RDW 13.8 % (11.5-14.5); WBC 8.6 10x3/uL (4.8-10.8)
== END | disposition home or self-care (01) ==
LOC: D.RAD 11:15
PROVIDERS: Internal Medicine Cardiovascular Disease
DX: J91.8 Pleural effusion in other conditions classified elsewhere (principal); D64.9 Anemia, unspecified